=== PATIENT | male | born 1990 | race Caucasian/White ===

== ENCOUNTER 2016-12-20 06:56 | Day surgery (SDC) | payer OTHER ==
[~2016-12-20] VITALS: Ht 182.9 cm; Wt 81.8 kg
[~2016-12-20 06:56] MED LIST: PROPOFOL 1% 20 ML VIAL IVP ONE; SODIUM CHLORIDE 0.9% 1,000 ML IV ONE
[2016-12-20] MEDS ORDERED: SODIUM CHLORIDE 0.9% 1,000 ML IV ONE (07:16)
== END 2016-12-20 09:35 | disposition home or self-care (01) ==
LOC: SURGERY 06:56
PROVIDERS: ATTEND Internal Medicine Gastroenterology
DX: K29.70 Gastritis, unspecified, without bleeding (principal); K22.8 Other specified diseases of esophagus; K59.09 Other constipation; K64.9 Unspecified hemorrhoids; F41.9 Anxiety disorder, unspecified; F84.0 Autistic disorder; Z88.0 Allergy status to penicillin; Z88.8 Allergy status to other drugs, medicaments and biological substances; Z90.49 Acquired absence of other specified parts of digestive tract; Z98.890 Other specified postprocedural states
CPT/HCPCS: 43239; 88305; 88312; C1769; J2704; J7030